=== PATIENT | female | born 2005 | race Two or more races ===

== ENCOUNTER 2024-10-19 10:51 | Emergency (ER) | payer MEDICAID, SELFPAY ==
--- NOTE | 2024-10-19 11:10 | XR_ITS ---
Examination: PA lateral chest 2 views TECHNIQUE: Upright PA lateral chest 2 views Exam date and time: October 19, 2024 1118 hours INDICATIONS: Coughing fever beginning one week ago. FINDINGS: Normal heart size The lungs are clear. Mild thoracic dextroscoliosis IMPRESSION: No pneumonia or pulmonary edema
[2024-10-19 11:11] VITALS: BP 118/76; PULSE 95; RESP 17; TEMP 36.6; O2SAT 100; BMI 21.9
--- NOTE | 2024-10-19 11:11 | PD.EDRME ---
Rapid Medical Screening Exam RME Arrival date/time: 10/19/24 10:51 19-year-old female with multiple sick contacts presents the emergency department today complaints of nausea, vomiting, generalized bodyaches Chief Complaint: Flu Like Symptoms Time Seen by Provider: 10/19/24 10:59
[2024-10-19] MEDS: IBUPROFEN TAB 400 MG TABLET 800 MG PO (11:24)
[2024-10-19] MEDS: ONDANSETRON ODT 4 MG TABRAP PO (11:25)
[2024-10-19 11:53] LABS: Basophils % (Auto) 0 % (0-2.5); Eosinophils % (Auto) 1 % (0-10); Hematocrit 46.8 % (36.0-46.0); Hemoglobin 15.9 g/dL (12.0-16.0); Immature Granulocytes % (Auto) 0 % (0-0); Immature Granulocytes Auto 0.02 Thou/mm3 (0.00-0.00); Lymphocytes # (Auto) 1.4 Thou/mm3 (1.0-4.8); Lymphocytes % (Auto) 30 % (10-50); Mean Corpuscular Hemoglobin 29.9 pg (25.0-35.0); Mean Corpuscular Volume 88 fL (80-100); Monocytes # (Auto) 0.3 Thou/mm3 (0.0-0.8); Monocytes % (Auto) 7 % (0-12); Neutrophils % (Auto) 62 % (37-80); Nucleated Red Blood Cell % 0 /100 WBC (0); Platelet Count 137 Thou/mm3 (140-440); RDW Standard Deviation 39.4 fL (36.4-46.3); Red Blood Count 5.32 Miln/mm3 (4.00-5.20); White Blood Count 4.8 Thou/mm3 (3.6-11.0)
[2024-10-19 12:05] LABS: Collection Type, Urine Clean Catch
[2024-10-19 12:16] LABS: Alanine Aminotransferase 174 U/L (10-49); Albumin, Serum 5.4 gm/dL (3.5-5.0); Albumin/Globulin Ratio 1.8 (1.2-2.2); Alkaline Phosphatase 110 U/L (46-116); Anion Gap 13 (7-16); Aspartate Amino Transferase 198 U/L (0-34); BUN/Creatinine Ratio 15 Ratio (12-20); Bilirubin,Total 0.6 mg/dL (0.3-1.2); Blood Urea Nitrogen 9 mg/dL (9-23); Calcium 9.8 mg/dL (8.3-10.6); Calcium (Corrected) 9.8 mg/dL (8.5-10.1); Carbon Dioxide 25.2 mMol/L (20.0-31.0); Chloride 101 mMol/L (98-107); Creatinine (Component) 0.6 mg/dL (0.6-1.3); Estimated Creatinine Clearance 149.6 mL/min (>60); Glucose 102 mg/dL (74-106); Lipase 44 U/L (12-53); Osmolality,Calculated 276 (275-295); Potassium 4.4 mMol/L (3.4-5.1); Sodium 139 mMol/L (136-145); Total Protein 8.4 gm/dL (5.7-8.2); eGFR > 60 See Note
[2024-10-19 12:21] LABS: HCG Qualitative,Urine Negative
[2024-10-19 12:31] LABS: Amorphous Crystals,Urine Present (Absent); Bacteria,Urine 2+; Bilirubin,Urine Negative (Negative); Blood,Urine Negative (Negative); Color,Urine Yellow (Lt Yel-Yel); Glucose, Urine Negative (Negative); Ketones,Urine 1+ (Negative); Leukocyte Esterase,Urine Positive (Negative); Nitrite,Urine Negative (Negative); Protein,Urine 1+ (Neg - Trace); RBC,Urine 4 /hpf (0-3); Specific Gravity,Urine 1.023 (1.001-1.035); Squamous Epithelial Cell,Urine 4 /hpf (0-5); WBC,Urine 4 /hpf (0-5)
[2024-10-19 12:32] LABS: Clarity,Urine Hazy (Clear/Hazy); Culture Indicated,Urine Yes
[2024-10-19 14:12] VITALS: BP 115/85; PULSE 93; RESP 18; TEMP 36.6; O2SAT 100
--- NOTE | 2024-10-19 14:44 | PD.EDURI ---
Upper Respiratory Inf. RME/HPI General Chief Complaint: Flu Like Symptoms Stated Complaint: fever, not eating/drinking x1 week Time Seen by Provider: 10/19/24 10:59 Arrival date/time: 10/19/24 10:51 RME / HPI RME / HPI Narrative: 19-year-old female with multiple sick contacts presents the emergency department today complaints of nausea, vomiting, generalized bodyaches. This been ongoing for the last few days, severity of symptoms moderate. Patient denies any diarrhea. Patient also complained of nonproductive cough severity mild. Patient told me that she cannot take anything down due to vomiting. Denies any abdominal pain. Related Data Previous Rx's ?Medication ?Instructions ?Recorded ciprofloxacin HCl 500 mg tablet 500 mg PO Q12H #20 tabs 09/19/20 (Cipro) metoclopramide HCl 10 mg tablet 10 mg PO Q6H #20 tabs 09/19/20 (Reglan) ibuprofen 800 mg tablet 800 mg PO Q8H PRN pain #20 tabs 10/19/24 ondansetron HCl 4 mg tablet 4 mg PO Q8H PRN nausea and 10/19/24 vomiting 5 days #14 tabs oseltamivir 75 mg capsule (Tamiflu) 75 mg PO BID 5 days #10 caps 10/19/24 Allergies Allergy/AdvReac Type Severity Reaction Status Date / Time No Known Allergies Allergy Verified 10/19/24 10:52 Review of Systems Review of Systems Narrative Review of Systems: Review of system reviewed and within normal limits except mentioned in HPI ED Exam Narrative Physical exam: VITAL SIGNS: Reviewed. GENERAL APPEARANCE: Alert and interactive, follows commands, no acute distress, HEAD AND FACE: Non-traumatic. ENT: PERRL, pink conjunctivitis, eyelid no trauma, Mucous membrane dry NECK: Supple, nontender, no nuchal rigidity. CHEST: No tenderness, no crepitus, no paradoxical movement, no retractions. LUNGS: Clear, well ventilated, symmetric, no rales, no wheezing, no ronchi, no stridor, good breath sounds bilaterally. HEART: Regular rate, regular rhythm, no murmur, no gallops. ABDOMEN: Soft, positive bowel sounds, nondistended, no guarding, nontender, no rebound, no masses, RECTAL: Deferred. GENITAL: Deferred. NEUROLOGICAL: Gross motor function intact sensory function intact, Appropriate for age. MUSCULOSKELETAL: low back nontender, full range of motion. EXTREMITIES: Nontender, full range of motion. SKIN: Color pink, dry, no rash, no lacerations, no abrasions, no contusions. LYMPHATICS: Deferred. Course Quality Measures none Orders Category Date Time Status Bedside COVID-19 Antigen Test NOW Care 10/19/24 11:10 Active Bedside Influenza A&B Antigen Test NOW Care 10/19/24 11:10 Completed XR chest 2V Stat Exams 10/19/24 11:10 Completed CBC Stat Lab 10/19/24 11:31 Completed Comprehensive Metabolic Panel Stat Lab 10/19/24 11:31 Completed HCG Qualitative,Urine Stat Lab 10/19/24 11:51 Completed Lipase Stat Lab 10/19/24 11:31 Completed UA, C/S IF [Urinalysis, C/S if Indicated] Stat Lab 10/19/24 11:51 Completed Urine Culture Stat Lab 10/19/24 11:51 Received Famotidine Inj [Pepcid Inj] Med 10/19/24 16:35 Discontinued 20 mg IVP X1 ONE Ibuprofen Tab [Motrin Tab] Med 10/19/24 11:11 Discontinued 800 mg PO X1 ONE Ondansetron Inj [Zofran Inj] Med 10/19/24 16:35 Discontinued 4 mg IV X1 ONE Ondansetron Odt [Zofran Odt] Med 10/19/24 11:10 Discontinued 4 mg PO X1 ONE Oseltamivir [Tamiflu] Med 10/19/24 14:43 Discontinued 75 mg PO X1 ONE Sodium Chloride 0.9% 1000 ml [Ns] 1,000 ml Med 10/19/24 14:44 Discontinued IV 999 mls/hr Vital Signs Vital signs: Vital Signs Temperature 97.9 F 10/19/24 11:11 Pulse Rate 95 10/19/24 11:11 Respiratory Rate 17 10/19/24 11:11 Blood Pressure 118/76 10/19/24 11:11 Pulse Oximetry (%) 100 10/19/24 11:11 Oxygen Delivery Method Room Air 10/19/24 11:11 Upper Respiratory Infection MDM Narrative MDM Narrative:: 19-year-old female with multiple sick contacts presents the emergency department today complaints of nausea, vomiting, generalized bodyaches. This been ongoing for the last few days, severity of symptoms moderate. Patient denies any diarrhea. Patient also complained of nonproductive cough severity mild. Patient told me that she cannot take anything down due to vomiting. Denies any abdominal pain. Patient tested positive for influenza. CBC no leukocytosis noted. Urinalysis no UTI noted. Chest x-ray is negative for pneumonia. Patient received IV fluids and Zofran. Patient verbalized significant improvement of symptoms, tolerating p.o. fluids in the ED prior to discharge. Was also given Tamiflu. Patient data External records reviewed:: None Clinical information provided by:: patient Social determinants that could affect healthcare access:: none Patient has the following chronic illnesses:: None How is presenting disease/condition affected by chronic disease/condition?: no chronic disease Evaluation data The following diagnostics were reviewed and interpreted by me:: lab results and radiology exam(s) Lab and/or radiology exams considered but not ordered:: None Interpretation Summary: Tested positive for influenza. I personally reviewed and interpreted the x-ray of this patient. There is no acute abnormalities found, no infiltrates no pneumothorax no hemothorax normal chest x-ray. Review of other structures was without significant abnormal findings also. I additionally reviewed the radiologist report and agree with the interpretation. Laboratory workup all came back unremarkable. Medications / Prescriptions Medications or Prescriptions considered but not ordered:: Not Medication administrations:: Medication Administration History Discontinued Medications Famotidine (Famotidine Inj 10 Mg/Ml Vial 2 Ml) 20 mg IVP X1 ONE Stop: 10/19/24 16:36 Sodium Chloride (Ns) 1,000 mls @ 999 mls/hr IV .Q1H1M ONE Stop: 10/19/24 15:44 Last Admin: 10/19/24 15:09 Dose: 999 mls/hr Documented By: GISELE Ibuprofen (Ibuprofen Tab 400 Mg Tablet) 800 mg PO X1 ONE Stop: 10/19/24 11:12 Last Admin: 10/19/24 11:24 Dose: 800 mg Documented By: RUSSELL Ondansetron HCl (Ondansetron Odt 4 Mg Tabrap) 4 mg PO X1 ONE; Protocol Stop: 10/19/24 11:11 Last Admin: 10/19/24 11:25 Dose: 4 mg Documented By: RUSSELL Ondansetron HCl (Ondansetron Inj 2 Mg/Ml Inj 2 Ml) 4 mg IV X1 ONE; Protocol Stop: 10/19/24 16:36 Oseltamivir Phosphate (Oseltamivir 75 Mg Capsule) 75 mg PO X1 ONE Stop: 10/19/24 14:44 Last Admin: 10/19/24 15:08 Dose: 75 mg Documented By: GISELE IV Zofran, and IV fluids for hydration. Patient also received IV fluid Consultations Consultation(s) initiated? (list below): No Diagnosis Upper Respiratory Differential Diagnosis: upper respiratory infection, bronchitis and influenza Most likely diagnosis given after review of the tests above:: Influenza, Admission Indicated Admission indicated?: not indicated Explain why admission is indicated or not indicated:: Stable Admission Request Was there a request for admission?: No Disposition Plan Disposition Plan: Discharge Discharge Attestation Discharge Attestation: The patient and all family members were given an opportunity to ask questions and understood the discharge instructions. Discharge instructions specifically effects, indications for sooner follow up or return to the emergency department, and the expected course of current diagnosis. Patient condition: Stable Discharge Plan Plan Patient Disposition: HOME (Self Care) Disposition Comment: stable Prescriptions/Referrals Prescriptions/Med Rec: New oseltamivir [Tamiflu] 75 mg capsule 75 mg PO BID 5 Days Qty: 10 0RF ondansetron HCl 4 mg tablet 4 mg PO Q8H PRN (Reason: nausea and vomiting) 5 Days Qty: 14 0RF ibuprofen 800 mg tablet 800 mg PO Q8H PRN (Reason: pain) Qty: 20 0RF No Action ciprofloxacin HCl [Cipro] 500 mg tablet 500 mg PO Q12H Qty: 20 0RF metoclopramide HCl [Reglan] 10 mg tablet 10 mg PO Q6H Qty: 20 0RF Referrals: Gail Villalba PA-C [Primary Care Provider] - In 1 week Problem List Clinical Impression: Influenza Patient/Caregiver Discharge Instructions Discharge Activity: activity as tolerated Education Materials: The Flu (Influenza) Additional Instructions: Thank you for the opportunity for serving you today. You are stable for discharged . You are advised to: Follow-up with your PCP in 1 to 2 days Return to ED for worsening of symptoms Increase oral fluids Take medication as prescribed Print Language: Romansh Stand Alone Forms: Lisha Award Info., Patient Portal Info Letter PA/LAMAR Supervising Physician JERZY/LAMAR Supervising Physician: MD Rufino
[2024-10-19] MEDS: OSELTAMIVIR 75 MG CAPSULE PO (15:08)
[2024-10-19] MEDS: SODIUM CHLORIDE 0.9% 1000 ML 1,000 ML 999 ML IV (15:09)
[2024-10-19 16:39] VITALS: BP 114/71; PULSE 74; RESP 20; O2SAT 100
[2024-10-19] MEDS: FAMOTIDINE INJ 10 MG/ML VIAL 2 ML 20 MG IVP (17:33)
[2024-10-19] MEDS: ONDANSETRON INJ 2 MG/ML INJ 2 ML 4 MG IV (17:34)
[2024-10-19 18:09] VITALS: BP 120/75; PULSE 70; RESP 20; O2SAT 100
== END 2024-10-19 19:12 | disposition home or self-care (01) ==
PROVIDERS: Nurse Practitioner Primary Care; Emergency Provider Emergency Medicine; PCP Physician Assistant
DX: J11.1 Influenza due to unidentified influenza virus with other respiratory manifestations (principal)
CPT/HCPCS: 36415; 71046; 80053; 81001; 81025; 83690; 85025; 87086; 87400; 87811; 96374; 96375; 99284; J2405; J3490; J7030; Q0162; A9270